=== PATIENT | male | born 1990 | race Two or more races ===

== ENCOUNTER → 2019-12-07 | Outpatient (CLI) | payer OTHER ==
--- NOTE | 2019-12-07 10:38 | XR ---
EXAMINATION TYPE: XR chest 2V DATE OF EXAM: 12/07/2019 COMPARISON: 10/16/2014 HISTORY: Chest pain TECHNIQUE: Frontal and lateral views of the chest are obtained. FINDINGS: There is no focal air space opacity. No evidence for pneumothorax. No pleural effusion. The cardiac silhouette size is within normal limits. The osseous structures are grossly intact. IMPRESSION: 1. No acute cardiopulmonary process.
--- NOTE | 2019-12-07 10:45 | XR ---
EXAMINATION TYPE: XR cervical spine comp DATE OF EXAM: 12/07/2019 COMPARISON: NONE HISTORY: Pain TECHNIQUE: Four views are submitted. FINDINGS: The odontoid is intact. There are no compression deformities. The prevertebral soft tissue structur es are within normal limits. Small bilateral cervical ribs greater on the left. Mild hypertrophic ch anges at C3-4, C4-5 and C5-C6. IMPRESSION: 1. Mild hypertrophic spurring involving the cervical spine. 2. small cervical ribs..
[2019-12-07 12:00] LABS: Basophils # (A) 0.1 k/uL (0-0.2); Basophils % (A) 1 %; Eosinophils # (A) 0.3 k/uL (0-0.7); Eosinophils % (A) 5 %; HCT 53.5 % (39.0-53.0); HGB 17.3 gm/dL (13.0-17.5); Lymphocytes # (A) 1.2 k/uL (1.0-4.8); Lymphocytes % (A) 25 %; MCH 28.6 pg (25.0-35.0); MCHC 32.4 g/dL (31.0-37.0); MCV 88.1 fL (80.0-100.0); Mean Platelet Volume 7.3; Monocytes # (A) 0.3 k/uL (0-1.0); Monocytes % (A) 6 %; Neutrophils # (A) 2.8 k/uL (1.3-7.7); Neutrophils % (A) 61 %; Platelet Count 238 k/uL (150-450); RBC 6.07 m/uL (4.30-5.90); RDW 12.7 % (11.5-15.5); WBC 4.7 k/uL (3.8-10.6)
[2019-12-07 17:21] LABS: Albumin 4.4 g/dL (3.80-4.90); Albumin/Globulin Ratio 1.57 (1.60-3.17); Anion Gap 4.5 mmol/L (4.00-12.00); Calcium 9.8 mg/dL (8.7-10.3); Carbon Dioxide 29.5 mmol/L (21.6-31.8); Chol/HDL Ratio 4.15; Globulin 2.8 g/dL (1.6-3.3); LDL Cholesterol,Calculated 118.8 mg/dL (0.0-131.0); Non-African American GFR(CKD) 102.7 (60.0-200.0); Potassium 4.6 mmol/L (3.5-5.5); Total Bilirubin 0.6 mg/dL (0.2-1.2); Total Protein 7.2 g/dL (6.2-8.2); VLDL Calculation 26.2 mg/dL (5.00-40.00)
[2019-12-08 00:53] LABS: Erythrocyte Sedimentation Rate 1 mm/Hr (0-15)
== END ==
LOC: LABWHC1 09:15
PROVIDERS: ATTEND Internal Medicine
DX: M46.02 Spinal enthesopathy, cervical region (principal); D64.9 Anemia, unspecified; E78.5 Hyperlipidemia, unspecified; J44.9 Chronic obstructive pulmonary disease, unspecified; E55.9 Vitamin D deficiency, unspecified
CPT/HCPCS: 36415; 71046; 72050; 80053; 80061; 82306; 82550; 82607; 84443; 85025; 85652

== ENCOUNTER → 2020-02-01 | Outpatient (CLI) | payer BC, OTHER ==
--- NOTE | 2020-02-01 10:45 | XR ---
EXAMINATION TYPE: XR ribs RT DATE OF EXAM: 02/01/2020 COMPARISON: NONE HISTORY: Right lower rib pain TECHNIQUE: 4 views of the right rib cage are submitted FINDINGS: Osseous structures are intact. Lungs are clear. No acute displaced rib fracture. IMPRESSION: No acute displaced rib fracture. If symptoms persist consider bone scan.
== END | disposition home or self-care (01) ==
LOC: RADXRMAIN 10:24
PROVIDERS: ATTEND Internal Medicine
DX: R07.81 Pleurodynia (principal); S22.31XA Fracture of one rib, right side, initial encounter for closed fracture; R10.9 Unspecified abdominal pain

== ENCOUNTER → 2020-10-17 | Outpatient (CLI) | payer BC, OTHER ==
--- NOTE | 2020-10-17 12:33 | XR ---
EXAM TYPE: LUMBAR SPINE X RAY SERIES COMPARISON: NONE HISTORY: Pain TECHNIQUE: 4 views are submitted. FINDINGS: Alignment is anatomic. The pedicles are intact. The transverse processes are intact. There is no s pondylolysis or spondylolisthesis. IMPRESSION: 1. No acute process.
--- NOTE | 2020-10-17 12:34 | XR ---
EXAMINATION TYPE: XR thoracic spine complete DATE OF EXAM: 10/17/2020 COMPARISON: NONE HISTORY: Pain TECHNIQUE: 3 views submitted FINDINGS: Alignment is anatomic. There is no compression deformities. Vertebral body height and disc interspa river are maintained. Slight curvature of the spine. IMPRESSION: 1. No acute abnormality.
[2020-10-17 12:52] LABS: Basophils % (A) 1 %; Eosinophils # (A) 0.2 k/uL (0-0.7); Eosinophils % (A) 6 %; HCT 48.2 % (39.0-53.0); HGB 15.5 gm/dL (13.0-17.5); Lymphocytes # (A) 1.2 k/uL (1.0-4.8); Lymphocytes % (A) 30 %; MCH 28.6 pg (25.0-35.0); MCHC 32.2 g/dL (31.0-37.0); MCV 88.9 fL (80.0-100.0); Mean Platelet Volume 6.8; Monocytes # (A) 0.3 k/uL (0-1.0); Monocytes % (A) 7 %; Neutrophils # (A) 2.2 k/uL (1.3-7.7); Neutrophils % (A) 54 %; Platelet Count 218 k/uL (150-450); RBC 5.42 m/uL (4.30-5.90); RDW 13.1 % (11.5-15.5); WBC 4.1 k/uL (3.8-10.6)
[2020-10-17 13:20] LABS: African American GFR (CKD) >90 (>60 ml/min/1.73 sqM); Anion Gap 6 mmol/L; Blood Urea Nitrogen 14 mg/dL (9-20); Calcium 9.5 mg/dL (8.4-10.2); Carbon Dioxide 31 mmol/L (22-30); Chloride 102 mmol/L (98-107); Glucose 99 mg/dL (74-99); Non-African American GFR(CKD) >90 (>60 ml/min/1.73 sqM); Potassium 5.4 mmol/L (3.5-5.1); Sodium 139 mmol/L (137-145)
== END | disposition home or self-care (01) ==
LOC: RADXRMAIN 10:47
PROVIDERS: ATTEND Internal Medicine
DX: M54.5 Low back pain (principal); M54.6 Pain in thoracic spine
CPT/HCPCS: 36415; 72072; 72100; 80048; 82306; 85025

== ENCOUNTER → 2021-01-03 | Outpatient (CLI) | payer BC, OTHER ==
[2021-01-03 11:20] LABS: Basophils % (A) 1 %; Eosinophils # (A) 0.2 k/uL (0-0.7); Eosinophils % (A) 6 %; HCT 46.6 % (39.0-53.0); Lymphocytes % (A) 29 %; MCH 30.4 pg (25.0-35.0); MCHC 34.4 g/dL (31.0-37.0); MCV 88.5 fL (80.0-100.0); Mean Platelet Volume 7.5; Monocytes # (A) 0.2 k/uL (0-1.0); Monocytes % (A) 5 %; Neutrophils # (A) 1.9 k/uL (1.3-7.7); Neutrophils % (A) 55 %; Platelet Count 217 k/uL (150-450); RBC 5.26 m/uL (4.30-5.90); RDW 13.2 % (11.5-15.5); WBC 3.5 k/uL (3.8-10.6)
[2021-01-03 11:45] LABS: ALT 28 U/L (4-49); AST 29 U/L (17-59); African American GFR (CKD) >90 (>60 ml/min/1.73 sqM); Albumin 4.4 g/dL (3.5-5.0); Alkaline Phosphatase 40 U/L (38-126); Amylase 63 U/L (30-110); Anion Gap 7 mmol/L; Blood Urea Nitrogen 17 mg/dL (9-20); Calcium 9.7 mg/dL (8.4-10.2); Carbon Dioxide 25 mmol/L (22-30); Chloride 106 mmol/L (98-107); Glucose 87 mg/dL (74-99); Lipase 140 U/L (23-300); Non-African American GFR(CKD) >90 (>60 ml/min/1.73 sqM); Potassium 4.3 mmol/L (3.5-5.1); Sodium 138 mmol/L (137-145); Total Bilirubin 0.7 mg/dL (0.2-1.3); Total Protein 7.1 g/dL (6.3-8.2)
--- NOTE | 2021-01-03 12:21 | US ---
EXAMINATION TYPE: US abdomen complete DATE OF EXAM: 01/03/2021 COMPARISON: NONE CLINICAL HISTORY: R10.11 RUQ PAIN. RUQ pain. Hx appendectomy. EXAM MEASUREMENTS: Liver Length: 14.1 cm Gallbladder Wall: 0.30 cm CBD: 0.32 cm Spleen: 9.6 cm Right Kidney: 10.1 x 5.4 x 4.3 cm Left Kidney: 9.4 x 4.7 x 5.3 cm Limited due to gas. Pancreas: Appears to be wnl. Liver: Appears to be wnl. Gallbladder: Anechoic. Evidence for sonographic Arreaga's sign: Patient feels pain throughout the RUQ. CBD: 0.32 cm. Spleen: Appears to be wnl. Right Kidney: No hydronephrosis or masses seen Left Kidney: No hydronephrosis or masses seen Upper IVC: Appears to be wnl. Abd Aorta: Appears to be wnl. Portal vein appears to measure 17.2 mm (wnl less than or equal to 13 mm). Definite thrombus is not id entified. IMPRESSION: 1. Gallbladder wall is at the upper limits of normal. There is diffuse right upper quadrant pain with out a specific Arreaga's sign. Gallbladder is sonolucent without suspicious gallstones. Clinical manag ement of any suspected cholecystitis is recommended. 2. Prominence of the portal vein. Various etiologies can be associated. Consider hepatitis within the broad differential.
== END | disposition home or self-care (01) ==
LOC: RADUSWWP 10:25
PROVIDERS: ATTEND Internal Medicine
DX: R10.11 Right upper quadrant pain (principal)
CPT/HCPCS: 76700; 80053; 82150; 83690; 85025